=== PATIENT | female | born 1965 | race Caucasian/White ===

== ENCOUNTER 2018-01-15 08:35 | Day surgery (SDC) | payer BC, OTHER ==
[2018-01-12 09:00] VITALS: BMI 25.1
[~2018-01-15 08:35] MED LIST: LACTATED RINGERS 1,000 ML IV SCH
[2018-01-15 09:03] VITALS: TEMP 98.1
[2018-01-15] MEDS ORDERED: LIDOCAINE 1% 20 ML VIAL (10MG/ML) FOR IV START INTRADERMA ONE (09:06)
[2018-01-15] MEDS ORDERED: PROPOFOL 10 MG/ML 20 ML VIAL IV ONE (09:15)
[2018-01-15] MEDS ORDERED: LIDOCAINE 1% INJ 10MG/ML (20 ML MDV) ONE (09:15)
--- NOTE | 2018-01-15 09:42 | P.PCN ---
Date of Procedure: 01/15/18 Procedure(s) Performed: Procedure: Total colonoscopy. Preoperative diagnosis: Screening for neoplasia. Postoperative diagnosis: Exam within normal limits. Preparation: HalfLytely prep. Sedation: Was provided by anesthesia. Brief clinical history: The patient is 52-year-old female who is scheduled for this evaluation for screening for neoplasia. She had no prior examinations or family history of colon cancer. At this time, he has no abdominal complaints, bleeding or anemia. Procedure: With the patient on her left lateral decubitus position and after informed consent and adequate sedation, the perianal area was inspected and it did not show any fissures or fistulas. There were no masses felt on digital rectal examination. The Olympus CFQ 160L video colonoscope was then inserted in the rectum in the usual fashion and advanced to the cecum. The mucosa appeared healthy. No polyps or tumors were seen or any obvious pathology. I retroflexed the endoscope in the rectum before the endoscope was withdrawn. The patient tolerated the procedure well. Plan: The patient was reassured. She will follow-up with you as planned and I recommended repeat exam in 10 years.
[2018-01-15 10:02] VITALS: BP 118/78; PULSE 86; RESP 18
== END 2018-01-15 10:20 | disposition home or self-care (01) ==
LOC: ORWHC2ENDO 08:35
DX: Z12.11 Encounter for screening for malignant neoplasm of colon (principal); Z85.820 Personal history of malignant melanoma of skin; Z85.828 Personal history of other malignant neoplasm of skin; Z79.3 Long term (current) use of hormonal contraceptives; Z79.899 Other long term (current) drug therapy
CPT/HCPCS: 81025; J2001; J2704; G0121

== ENCOUNTER 2023-09-03 08:17 | Emergency (ER) | payer OTHER ==
[2023-09-03 08:40] VITALS: TEMP 98.3
[2023-09-03] MEDS: MECLIZINE 12.5 MG TAB PO STA (08:57)
[2023-09-03] MEDS: SODIUM CHLORIDE 0.9% 1,000 ML IV STA (08:57)
[2023-09-03 09:19] LABS: Basophils # (A) 0.1 k/uL (0-0.2); Basophils % (A) 1 %; Eosinophils # (A) 0.1 k/uL (0-0.7); Eosinophils % (A) 1 %; HCT 42.5 % (34.0-46.0); HGB 14.2 gm/dL (11.4-16.0); Lymphocytes % (A) 20 %; MCH 29.3 pg (25.0-35.0); MCHC 33.3 g/dL (31.0-37.0); MCV 87.9 fL (80.0-100.0); Mean Platelet Volume 7.5; Monocytes # (A) 0.5 k/uL (0-1.0); Monocytes % (A) 6 %; Neutrophils # (A) 6.9 k/uL (1.3-7.7); Neutrophils % (A) 70 %; Platelet Count 376 k/uL (150-450); RBC 4.84 m/uL (3.80-5.40); WBC 9.9 k/uL (3.8-10.6)
--- NOTE | 2023-09-03 09:31 | CT ---
EXAMINATION TYPE: CT brain wo con CT DLP: 1140.6 mGycm, Automated exposure control for dose reduction was used. DATE OF EXAM: 09/03/2023 9:22 AM COMPARISON: None. CLINICAL INDICATION:Female, 57 years old with history of intractable vertigo, Dizziness and nausea si nce . TECHNIQUE: Brain: Axial CT images of the brain were obtained with coronal and sagittal reformats created and rev iewed. Contrast used: None. Oral contrast used: None. FINDINGS: Extra-axial spaces: No abnormal extra-axial fluid collections. Tiny benign midline lipomas suggested. Ventricular system: Within normal limits. Cerebral parenchyma: No increased attenuation to suggest acute intraparenchymal hemorrhage. The gra y-white matter interface appears maintained. No significant atrophy. White matter unremarkable by C T. Cerebellum: No acute abnormality. Mass effect: No evidence of mass effect or midline shift. Intracranial vasculature: Unremarkable Soft tissues: No acute or concerning abnormality. Visualized orbits: Orbital contents appear grossly intact. Calvarium/osseous structures: No evidence of calvarial fracture. Paranasal sinuses and mastoid air cells: Clear. MRI is more sensitive for detecting acute processes such as infarct, and may be considered if clinica lly warranted. IMPRESSION: No acute intracranial CT abnormality.
--- NOTE | 2023-09-03 10:04 | CT ---
EXAMINATION TYPE: CT angio head neck DATE OF EXAM: 09/03/2023 9:35 AM COMPARISON: Earlier same day noncontrast CT head. CLINICAL INDICATION:Female, 57 years old with history of intractable vertigo; PHH, Dizziness and naus ea since . TECHNIQUE: Axially acquired helical CT angiogram of the head and neck was obtained with contrast. Axi al images are supplemented with 3D reconstructions [facility] NASCET criteria used. Contrast used: 65 ml mL of Isovue 300 with IV Contrast, Oral contrast used: None. CT DLP: 506.9 mGycm, Automated exposure control for dose reduction was used. FINDINGS: CTA Neck: Aorta is normal in course and caliber, no dissection flap is seen. The left common carotid artery shares a common trunk with the brachiocephalic artery (bovine arch con figuration). Branch vessels are normally patent. Right carotid system: The common carotid is patent. No significant atherosclerotic disease. ECA and I CA are patent. There is no hemodynamically significant diameter stenosis, dissection, nor pseudoaneur ysm present. Left carotid system: The common carotid is patent. No significant atherosclerotic disease. ECA and IC A are patent. There is no hemodynamically significant diameter stenosis, dissection, nor pseudoaneury sm present. Vertebral arteries: There is no significant atherosclerotic plaque at the origins of the vertebral ar teries. The vertebrals are then otherwise patent to the skull base. The vertebral arteries are essentially codominant. Other: Visualized neck soft tissues show no concerning abnormality. Hypodense 6 mm nodule in the left thyroid. Cervical spine shows no significant degenerative change or acute process. Imaged portions o f the lung apices are normal. CTA Head: The intracranial ICAs, bifurcations, ACAs, MCAs appear normally patent. Anterior communicating artery appears to be present. The intracranial vertebral arteries enhance normally. Basilar artery is patent and unremarkable. Norm al basilar bifurcation without evidence of aneurysm. Visualized proximal cell room supervisor are patent. A right posterior communicating artery is seen. A left posterior communicating artery is also seen but appears small.. No intracranial large vessel occlusion, hemodynamically significant stenosis, aneurysm, dissection, o r arteriovenous malformation is shown. The dural venous sinuses appear grossly patent without evidence of thrombosis. Other: Please refer to same-day CT head report.. IMPRESSION: CTA neck: No dissection, hemodynamically significant stenosis, or pseudoaneurysm detected in the carotid or osiel tebral arteries in the neck. CTA head: No intracranial large vessel occlusion, significant stenosis, or sizable aneurysm detected in the pyle its of CTA.
[2023-09-03 10:05] LABS: ALT 14 U/L (4-34); AST 27 U/L (14-36); African American GFR (CKD) >90 (>60 ml/min/1.73 sqM); Albumin 4.2 g/dL (3.5-5.0); Alkaline Phosphatase 80 U/L (38-126); Anion Gap 10 mmol/L; Blood Urea Nitrogen 12 mg/dL (7-17); Calcium 9.9 mg/dL (8.4-10.2); Carbon Dioxide 19 mmol/L (22-30); Chloride 110 mmol/L (98-107); Glucose 117 mg/dL (74-99); Non-African American GFR(CKD) >90 (>60 ml/min/1.73 sqM); Potassium 4.1 mmol/L (3.5-5.1); Sodium 139 mmol/L (137-145); Total Bilirubin 0.5 mg/dL (0.2-1.3); Total Protein 6.8 g/dL (6.3-8.2)
[2023-09-03 11:09] VITALS: RESP 18
[2023-09-03 11:38] LABS: Appearance,Urine Cloudy (Clear); Bacteria,Urine Rare /hpf; Bilirubin,Urine Negative (Negative); Blood,Urine Negative (Negative); Color,Urine Colorless; Glucose,Urine (UA) Negative (Negative); Hyaline Casts,Urine 1 /lpf (0-2); Ketones,Urine 2+ (Negative); Leukocyte Esterase,Urine Moderate (Negative); Nitrite,Urine Negative (Negative); PH, Urine 5.5 (5.0-8.0); Protein,Urine Negative (Negative); RBC,Urine 8 /hpf (0-5); Squamous Epithelial Cell,Urine 26 /hpf (0-4); Urobilinogen,Urine <2.0 mg/dL (<2.0); WBC,Urine 10 /hpf (0-5)
[2023-09-03 11:45] LABS: Specific Gravity,Urine >1.050 (1.001-1.035)
--- NOTE | 2023-09-03 11:59 | ED ---
General Adult HPI - General Chief complaint: Dizziness Stated complaint: Dizzy, nausea Time Seen by Provider: 09/03/23 08:25 Source: patient Mode of arrival: ambulatory Limitations: no limitations - History of Present Illness Initial comments: 57-year-old female presents to the emergency department reporting dizziness. States it started on when she was at the gym. States that she was doing a couple of sit ups. She sat up rather quickly and began having the room spinning sensation. States that she laid in bed for the past 2 days because of the dizziness. Her family brought her meclizine which she has tried to take. States that it helps her symptoms only minimally. She admits to nausea with decreased appetite. She denies any head injuries. No chiropractic manipulations of the neck. No speech difficulties. No visual changes. Denies any neck pain. Denies any weakness in her extremities. States that since she started taking the meclizine she has a numb/fuzzy feeling to her head. No history of similar in the past. No other alleviating, precipitating or modifying factors - Related Data Home Medications Medication Instructions Recorded Confirmed l-Norgest/E.estradiol-E.estrad 1 each PO DAILY 01/12/18 01/15/18 [Seasonique 0.15-0.03-0.01 Tab] Previous Rx's Medication Instructions Recorded diazePAM [Valium] 2 mg PO TID PRN 3 Days #9 tab 09/03/23 Allergies Allergy/AdvReac Type Severity Reaction Status Date / Time No Known Allergies Allergy Verified 09/03/23 08:23 Review of Systems ROS Statement: Those systems with pertinent positive or pertinent negative responses have been documented in the HPI. ROS Other: All systems not noted in ROS Statement are negative. 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 History of Any Multi-Drug Resistant Organisms: None Reported Past Surgical History: Section Additional Past Surgical History / Comment(s): mohs for melanoma, basal and squamous skin cancer removed, laparoscopic ovarian cyst, rhinoplasty Past Anesthesia/Blood Transfusion Reactions: Motion Sickness, Postoperative Nausea & Vomiting (PONV) Additional Past Anesthesia/Blood Transfusion Reaction / Comment(s): pts mother heart stopped during anesthesia was resuscitated and PONV Past Psychological History: No Psychological Hx Reported Smoking Status: Never smoker Past Alcohol Use History: Occasional Past Drug Use History: None Reported - Past Family History Mother Family Medical History: Cancer Additional Family Medical History / Comment(s): skin cancer, lumpectomy, and cervical cancer General Exam Limitations: no limitations General appearance: alert, in no apparent distress Head exam: Present: atraumatic, normocephalic, normal inspection Eye exam: Present: normal appearance, PERRL, EOMI. Absent: scleral icterus, conjunctival injection, periorbital swelling ENT exam: Present: normal exam, mucous membranes moist Neck exam: Present: normal inspection. Absent: tenderness, meningismus, lymphadenopathy Respiratory exam: Present: normal lung sounds bilaterally. Absent: respiratory distress, wheezes, rales, rhonchi, stridor Cardiovascular Exam: Present: regular rate, normal rhythm, normal heart sounds. Absent: systolic murmur, diastolic murmur, rubs, gallop, clicks GI/Abdominal exam: Present: soft, normal bowel sounds. Absent: distended, tenderness, guarding, rebound, rigid Extremities exam: Present: normal inspection, full ROM, normal capillary refill. Absent: tenderness, pedal edema, joint swelling, calf tenderness Back exam: Present: normal inspection Neurological exam: Present: alert, oriented X3, CN II-XII intact Psychiatric exam: Present: normal affect, normal mood Skin exam: Present: warm, dry, intact, normal color. Absent: rash Course Vital Signs 09/03/23 09/03/23 09/03/23 08:20 08:58 10:56 Temperature 98.3 F Pulse Rate 103 H 76 61 Respiratory 18 16 18 Rate Blood Pressure 144/88 135/81 132/79 O2 Sat by Pulse 98 94 L 98 Oximetry 09/03/23 11:30 Temperature Pulse Rate 88 Respiratory 18 Rate Blood Pressure 132/84 O2 Sat by Pulse 98 Oximetry Medical Decision Making - Medical Decision Making Was pt. sent in by a medical professional or institution (, PA, FRONT END ENGINEER, urgent care, hospital, or prison...) When possible be specific @ -No Did you speak to anyone other than the patient for history (EMS, parent, family, police, friend...)? What history was obtained from this source @ -I spoke with the patient's Did you review nursing and triage notes (agree or disagree)? Why? @ -I reviewed and agree with nursing and triage notes Were old charts reviewed (outside hosp., previous admission, EMS record, old EKG, old radiological studies, urgent care reports/EKG's, prison records)? Report findings @ -No old charts were reviewed Differential Diagnosis (chest pain, altered mental status, abdominal pain women, abdominal pain men, vaginal bleeding, weakness, fever, dyspnea, syncope, headache, dizziness, GI bleed, back pain, seizure, CVA, palpatations, mental h ealth, musculoskeletal)? @ -Differential Dizziness: Benign paroxysmal positional Vertigo, Menieres disease, otitis media, acoustic neuroma, vertebrobasilar insufficiency, cerebellar stroke, encephalitis, hypovolemic, arrhythmia, coronary artery syndrome, anemia, this is not meant to be an all-inclusive list EKG interpreted by me (3pts min.). @ -Yes and demonstrates sinus rhythm with a rate of 83. [place] interval 196. QRS 89. QTc of 415. No acute ST segment elevations or depressions X-rays interpreted by me (1pt min.). @ -None done CT interpreted by me (1pt min.). @ -Yes and demonstrates no acute process U/S interpreted by me (1pt. min.). @ -None done What testing was considered but not performed or refused? (CT, X-rays, U/S, labs)? Why? @ -None What meds were considered but not given or refused? Why? @ -None Did you discuss the management of the patient with other professionals (professionals i.e. , PA, FRONT END ENGINEER, lab, RT, psych nurse, social services manager, bun icer, teacher, contract officer, briefcase sewer)? Give summary @ -No Was smoking cessation discussed for >3mins.? @ -No Was critical care preformed (if so, how long)? @ -No Were there social determinants of health that impacted care today? How? (Homelessness, low income, unemployed, alcoholism, drug addiction, transportation, low edu. Level, literacy, decrease access to med. care, shelter, rehab)? @ -No Was there de-escalation of care discussed even if they declined (Discuss DNR or withdrawal of care, Hospice)? DNR status @ -No What co-morbidities impacted this encounter? (DM, HTN, Smoking, COPD, CAD, Cancer, CVA, ARF, Chemo, Hep., AIDS, mental health diagnosis, sleep apnea, morbid obesity)? @ -None Was patient admitted / discharged? Hospital course, mention meds given and route, prescriptions, significant lab abnormalities, going to OR and other pertinent info. @ -Upon arrival patient was placed into room 6. Thorough history and physical exam was performed. Laboratory studies are conducted. Patient is agreeable to CT of her head. She was given a dose of Valium for her dizziness. Patient reevaluated and states she is able to get up and ambulate to the bathroom without being dizzy. I did discuss the diagnosis, frontal and treatment options. I did offer overnight observation with neurology consultation however patient reports that her symptoms are resolved at this time and would like to go home. I will give her a few more tablets of Valium. She is given instructions for the Curt maneuver. Patient is to complete these as instructed. Follow-up with her primary care. I also gave her follow-up for ENT. Return to the emergency department for any new or worsening symptoms and at that time likely will be persuaded to be admitted. Patient was agreeable to this plan and she was discharged in stable condition Undiagnosed new problem with uncertain prognosis? @ -Yes Drug Therapy requiring intensive monitoring for toxicity (Heparin, Nitro, Insulin, Cardizem)? @ -No Were any procedures done? @ -No Diagnosis/symptom? @ -Acute vertigo, suspected BPPV Acute, or Chronic, or Acute on Chronic? @ -Acute Uncomplicated (without systemic symptoms) or Complicated (systemic symptoms)? @ -Complicated Side effects of treatment? @ -No Exacerbation, Progression, or Severe Exacerbation? @ -No Poses a threat to life or bodily function? How? (Chest pain, USA, MD, pneumonia, PE, COPD, DKA, ARF, appy, cholecystitis, CVA, Diverticulitis, Homicidal, Suicidal, threat to staff... and all critical care pts) @ -No - Lab Data Result diagrams: 09/03/23 08:52 09/03/23 08:52 Lab Results 09/03/23 09/03/23 09/03/23 Range/Units 08:52 08:52 08:52 WBC 9.9 (3.8-10.6) k/uL RBC 4.84 (3.80-5.40) m/uL Hgb 14.2 (11.4-16.0) gm/dL Hct 42.5 (34.0-46.0) % MCV 87.9 (80.0-100.0) fL MCH 29.3 (25.0-35.0) pg MCHC 33.3 (31.0-37.0) g/dL RDW 13.0 (11.5-15.5) % Plt Count 376 (150-450) k/uL MPV 7.5 Neutrophils % 70 % Lymphocytes % 20 % Monocytes % 6 % Eosinophils % 1 % Basophils % 1 % Neutrophils # 6.9 (1.3-7.7) k/uL Lymphocytes # 2.0 (1.0-4.8) k/uL Monocytes # 0.5 (0-1.0) k/uL Eosinophils # 0.1 (0-0.7) k/uL Basophils # 0.1 (0-0.2) k/uL Sodium 139 (137-145) mmol/L Potassium 4.1 (3.5-5.1) mmol/L Chloride 110 H (98-107) mmol/L Carbon Dioxide 19 L (22-30) mmol/L Anion Gap 10 mmol/L BUN 12 (7-17) mg/dL Creatinine 0.62 (0.52-1.04) mg/dL Est GFR (CKD-EPI)AfAm >90 (>60 ml/min/1.73 sqM) Est GFR (CKD-EPI)NonAf >90 (>60 ml/min/1.73 sqM) Glucose 117 H (74-99) mg/dL Calcium 9.9 (8.4-10.2) mg/dL Total Bilirubin 0.5 (0.2-1.3) mg/dL AST 27 (14-36) U/L ALT 14 (4-34) U/L Alkaline Phosphatase 80 (38-126) U/L Troponin I (0.000-0.034) ng/mL Total Protein 6.8 (6.3-8.2) g/dL Albumin 4.2 (3.5-5.0) g/dL Urine Color Colorless Urine Appearance Cloudy H (Clear) Urine pH 5.5 (5.0-8.0) Ur Specific [place] >1.050 H (1.001-1.035) Urine Protein Negative (Negative) Urine Glucose (UA) Negative (Negative) Urine Ketones 2+ H (Negative) Urine Blood Negative (Negative) Urine Nitrite Negative (Negative) Urine Bilirubin Negative (Negative) Urine Urobilinogen <2.0 (<2.0) mg/dL Ur Leukocyte Esterase Moderate H (Negative) Urine RBC 8 H (0-5) /hpf Urine WBC 10 H (0-5) /hpf Ur Squamous Epith Cells 26 H (0-4) /hpf Urine Bacteria Rare H (None) /hpf Hyaline Casts 1 (0-2) /lpf 09/03/23 Range/Units 08:52 WBC (3.8-10.6) k/uL RBC (3.80-5.40) m/uL Hgb (11.4-16.0) gm/dL Hct (34.0-46.0) % MCV (80.0-100.0) fL MCH (25.0-35.0) pg MCHC (31.0-37.0) g/dL RDW (11.5-15.5) % Plt Count (150-450) k/uL MPV Neutrophils % % Lymphocytes % % Monocytes % % Eosinophils % % Basophils % % Neutrophils # (1.3-7.7) k/uL Lymphocytes # (1.0-4.8) k/uL Monocytes # (0-1.0) k/uL Eosinophils # (0-0.7) k/uL Basophils # (0-0.2) k/uL Sodium (137-145) mmol/L Potassium (3.5-5.1) mmol/L Chloride (98-107) mmol/L Carbon Dioxide (22-30) mmol/L Anion Gap mmol/L BUN (7-17) mg/dL Creatinine (0.52-1.04) mg/dL Est GFR (CKD-EPI)AfAm (>60 ml/min/1.73 sqM) Est GFR (CKD-EPI)NonAf (>60 ml/min/1.73 sqM) Glucose (74-99) mg/dL Calcium (8.4-10.2) mg/dL Total Bilirubin (0.2-1.3) mg/dL AST (14-36) U/L ALT (4-34) U/L Alkaline Phosphatase (38-126) U/L Troponin I <0.012 (0.000-0.034) ng/mL Total Protein (6.3-8.2) g/dL Albumin (3.5-5.0) g/dL Urine Color Urine Appearance (Clear) Urine pH (5.0-8.0) Ur Specific [place] (1.001-1.035) Urine Protein (Negative) Urine Glucose (UA) (Negative) Urine Ketones (Negative) Urine Blood (Negative) Urine Nitrite (Negative) Urine Bilirubin (Negative) Urine Urobilinogen (<2.0) mg/dL Ur Leukocyte Esterase (Negative) Urine RBC (0-5) /hpf Urine WBC (0-5) /hpf Ur Squamous Epith Cells (0-4) /hpf Urine Bacteria (None) /hpf Hyaline Casts (0-2) /lpf Disposition Clinical Impression: Vertigo Disposition: HOME SELF-CARE Condition: Stable Instructions (If sedation given, give patient instructions): Dizziness (ED) Additional Instructions: Please take the Valium up to 3 times daily as needed for dizziness. Call make an appointment with your primary care doctor or the ear nose and throat doctor. Try the Curt maneuver. Return to the emergency department for any worsening symptoms Prescriptions: diazePAM [Valium] 2 mg PO TID PRN 3 Days #9 tab PRN Reason: Vertigo Is patient prescribed a controlled substance at d/c from ED?: Yes When asked, does pt state using other controlled substances?: No If prescribed controlled substance>3 days was MAPS reviewed?: Prescribed <3 Days Referrals: Sandra Estrada MD [Primary Care Provider] - 1-2 days Carlos Anaya MD [STAFF PHYSICIAN] - 1-2 days Time of Disposition: 11:59
[2023-09-03 12:10] VITALS: BP 132/84; PULSE 88
== END 2023-09-03 12:22 | disposition home or self-care (01) ==
LOC: EC 08:17
DX: R42 Dizziness and giddiness (principal)
CPT/HCPCS: 36415; 93005; 80053; 84484; 85025; 81001; 70496; 70450; 70498; 99284; 96374; 96361 ×2; J3360; Q9967